=== PATIENT | female | born 1975 | race Two or more races ===

== ENCOUNTER 2025-01-28 08:30 | Emergency (ER) | payer OTHER ==
[~2025-01-28] VITALS: Ht 167.6 cm; Wt 62.6 kg
[2025-01-28] MEDS ORDERED: 0.9 % SODIUM CHLORIDE 1,000 ML IV ONE (09:15)
[2025-01-28] MEDS ORDERED: PROPOFOL 10,000 MCG/ML VIAL ONE (09:46)
[2025-01-28] MEDS ORDERED: FLUMAZENIL 0.5 MG/5 ML ML IV ONE ×2 (10:37→10:45)
[2025-01-28] MEDS ORDERED: MIDAZOLAM HCL/PF 5 MG/ML VIAL IV ONE (10:45)
== END 2025-01-28 13:13 | disposition home or self-care (01) ==
LOC: ER 08:31
DX: M24.419 Recurrent dislocation, unspecified shoulder (principal); M25.511 Pain in right shoulder